=== PATIENT | female | born 1945 | race Caucasian/White ===

== ENCOUNTER 2021-06-07 10:48 | Observation (INO) | payer MEDICARE ==
[2021-06-07] MEDS ORDERED: Diltiazem 125 MG/25 ML ONE (11:30)
[2021-06-07] MEDS ORDERED: Enoxaparin Sodium 60 MG/0.6 ML SYRINGE ONE (11:30)
[2021-06-07 11:36] LABS: #Basophils 0.1 10x3/uL (0.0-0.2); #Eosinphils 0.1 10x3/uL (0.0-0.5); #Monocytes 0.6 10x3/uL (0.0-1.1); #Neutrophils 7.7 10x3/uL (1.5-8.4); %Basophils 0.6 % (0.0-2.0); %Lymphocytes 25.2 % (18.0-47.0); %Monocytes 5.6 % (0.0-10.0); %Neutrophils 67.3 % (40.0-75.0); Hemoglobin 14.4 g/dL (12.0-15.5); Mean Corpuscular HGB CONC 32.1 g/dL (32.0-36.0); Mean Corpuscular Hemoglobin 30.6 pg (27.0-33.0); Mean Corpuscular Volume 95.5 fl (81.6-98.3); Mean Platelet Volume 10.2 fl (7.4-10.4); Platelet Count 284 10x3/uL (150-450); RBC Distribution Width 12.6 % (11.5-14.5); White Blood Cell (WBC) Count 11.4 10x3/uL (3.5-10.5)
[2021-06-07 11:54] LABS: PTT 27.1 sec (22.0-33.0); Prothrombin Time 10.9 sec (9.5-12.1)
[2021-06-07 12:03] LABS: ALT (SGPT) 19 U/L (8-55); AST (SGOT) 19 U/L (5-34); Albumin 4.5 g/dL (3.4-4.8); Alkaline Phosphatase 71 U/L (40-110); Anion Gap 12 mmol/L (10-20); BUN (Urea Nitrogen) 12 mg/dL (9.8-20.1); Bilirubin, Total 0.9 mg/dL (0.2-1.2); Calc. Creatinine Clearance 0 mL/min (70-130); Calcium 9.6 mg/dL (7.8-10.44); Carbon Dioxide 26 mmol/L (23-31); Chloride 107 mmol/L (98-107); Globulin 3.9 g/dL (2.4-3.5); Glucose 119 mg/dL (83-110); Magnesium 2.1 mg/dL (1.6-2.6); Potassium 3.9 mmol/L (3.5-5.1); Protein, Total 8.4 g/dL (5.8-8.1); Sodium 141 mmol/L (136-145)
[2021-06-07] MEDS ORDERED: Furosemide 40 MG/4 ML VIAL ONE (14:10)
[2021-06-07 14:56] LABS: Troponin I Less than 0.010 ng/mL (< 0.028)
[2021-06-07] MEDS ORDERED: Acetaminophen 325 MG TAB PO PRN (15:03)
[2021-06-07] MEDS ORDERED: Diltiazem 125 MG in Sodium Chloride 0.9% 100 ML IVPB SCH (15:15)
[2021-06-07 16:13] VITALS: BMI 26.5
[2021-06-07] MEDS ORDERED: Metoprolol Tartrate 25 MG TAB PO SCH ×3 (18:00→21:00)
[2021-06-07 19:16] LABS: Troponin I Less than 0.010 ng/mL (< 0.028)
[2021-06-07] MEDS: Apixaban 5 MG TAB PO SCH (20:20)
[2021-06-07] MEDS ORDERED: Atorvastatin Calcium 20 MG TAB PO SCH (21:00)
[2021-06-07] MEDS ORDERED: Enoxaparin Sodium 60 MG/0.6 ML SYRINGE SC SCH (21:00)
[2021-06-08] MEDS: Apixaban 5 MG TAB PO SCH (08:22)
[2021-06-08 08:56] LABS: #Basophils 0.1 10x3/uL (0.0-0.2); #Eosinphils 0.2 10x3/uL (0.0-0.5); #Monocytes 0.7 10x3/uL (0.0-1.1); #Neutrophils 8.3 10x3/uL (1.5-8.4); %Basophils 0.4 % (0.0-2.0); %Eosinophils 1.3 % (0.0-6.0); %Lymphocytes 21.3 % (18.0-47.0); %Monocytes 6.3 % (0.0-10.0); %Neutrophils 70.4 % (40.0-75.0); Hemoglobin 13.7 g/dL (12.0-15.5); Mean Corpuscular HGB CONC 31.6 g/dL (32.0-36.0); Mean Corpuscular Hemoglobin 30.5 pg (27.0-33.0); Mean Corpuscular Volume 96.4 fl (81.6-98.3); Mean Platelet Volume 10.2 fl (7.4-10.4); Platelet Count 273 10x3/uL (150-450); RBC Distribution Width 12.5 % (11.5-14.5); Red Blood Cell (RBC) Count 4.49 10x6/uL (3.90-5.03); White Blood Cell (WBC) Count 11.8 10x3/uL (3.5-10.5)
[2021-06-08] MEDS ORDERED: Aspirin 81 mg Enteric Coated Tablet PO SCH (09:00)
[2021-06-08] MEDS ORDERED: Lisinopril 20 MG TAB PO SCH (09:00)
[2021-06-08] MEDS ORDERED: Amlodipine 10 MG TAB PO SCH (09:00)
[2021-06-08 09:14] LABS: Anion Gap 11 mmol/L (10-20); BUN (Urea Nitrogen) 12 mg/dL (9.8-20.1); Calc. Creatinine Clearance 69 mL/min (70-130); Calcium 9.2 mg/dL (7.8-10.44); Carbon Dioxide 27 mmol/L (23-31); Chloride 104 mmol/L (98-107); Glucose 108 mg/dL (83-110); Potassium 3.6 mmol/L (3.5-5.1); Sodium 138 mmol/L (136-145)
[2021-06-08 10:55] VITALS: BP 124/74; TEMP 98.2
[2021-06-08 17:24] LABS: SARS-CoV-2 PCR by NAA Not Detected (NotDetected)
[2021-06-08] MEDS ORDERED: FLU VACC QS2021-22(65YR UP)/PF 240 MCG/0.7 ML SYRINGE IM ONE (20:00)
== END 2021-06-08 17:00 | disposition home or self-care (01) ==
LOC: CSHERS 10:48 → CSHTELE 16:04 → OBSVTOIN 16:05 → INTOOBSV 16:05
PROVIDERS: ADMIT Internal Medicine; ATTEND Internal Medicine
DX: I48.91 Unspecified atrial fibrillation (principal); R21 Rash and other nonspecific skin eruption; F17.210 Nicotine dependence, cigarettes, uncomplicated; I10 Essential (primary) hypertension; E78.5 Hyperlipidemia, unspecified; I47.1 Supraventricular tachycardia; K21.9 Gastro-esophageal reflux disease without esophagitis; R60.0 Localized edema; Z79.82 Long term (current) use of aspirin; Z79.899 Other long term (current) drug therapy; Z20.822 Contact with and (suspected) exposure to COVID-19
CPT/HCPCS: 36415; 71045; 80048; 80053; 83735; 83880; 84443; 84484; 85025; 85610; 85730; 93005; 93306; 94760; J1650; J1940; U0003; U0005

== ENCOUNTER 2022-05-08 09:48 | Outpatient (CLI) | payer MEDICARE | END 2022-05-08 09:49 | disposition home or self-care (01) | LOC: CSHMAMMO 09:48 | PROVIDERS: ATTEND Physician Assistant | DX: Z12.31 Encounter for screening mammogram for malignant neoplasm of breast (principal); N64.89 Other specified disorders of breast | CPT/HCPCS: 77063; 77067 ==

== ENCOUNTER 2022-05-15 08:52 | Outpatient (CLI) | payer MEDICARE | END 2022-05-15 08:53 | disposition home or self-care (01) | LOC: CSHMAMMO 08:52 | PROVIDERS: ATTEND Physician Assistant | DX: N64.89 Other specified disorders of breast (principal) | CPT/HCPCS: 77065; G0279 ==

== ENCOUNTER 2023-05-31 15:03 | Outpatient (CLI) | payer MEDICARE | END 2023-05-31 15:04 | disposition home or self-care (01) | LOC: CSHMAMMO 15:03 | PROVIDERS: ATTEND Physician Assistant | DX: Z12.31 Encounter for screening mammogram for malignant neoplasm of breast (principal) | CPT/HCPCS: 77063; 77067 ==